=== PATIENT | female | born 1945 | race Caucasian/White ===

== ENCOUNTER 2021-02-24 23:02 | Inpatient (IN) | payer OTHER, SELFPAY ==
[~2021-02-24] VITALS: Ht 154.9 cm; Wt 51.8 kg
[2021-02-24 23:05] VITALS: BP_SYST 102
--- NOTE | 2021-02-24 23:05 | NUR ---
Placed in room 08 . Placed on groundwater monitoring technician, blood pressure machine and pulse oximeter. To gown for exam. Side rails up.
--- NOTE | 2021-02-24 23:10 | NUR ---
PATIENT AAOX1 BIB BLS FROM [facility] FOR GENERALIZED WEAKNESS AND FEELING HOT TO TOUCH. PATIENT HAS HISTORY OF DEMENTIA, PSYCHOSIS, AND AGITATION. NON AMBULATORY. VSS.
--- NOTE | 2021-02-24 23:20 | NUR ---
# 20 gauge angiocath placed to LEFT FOREARM. Use of asceptic technique. Opsite placed over site. Blood return noted. Blood for lab drawn from site. Flushed with 10 cc of normal saline. No evidence of infiltration noted. Patient tolerated well. COVID SWAB AND MRSA SWAB COLLECTED AND SENT TO LAB.
--- NOTE | 2021-02-24 23:25 | NUR ---
DR. JAUREGUI AT BEDSIDE FOR EVALUATION.
[2021-02-24] MEDS ORDERED: NACL 0.9% 2,000 ML IV ONE (23:30)
[2021-02-24] MEDS ORDERED: ACETAMINOPHEN 650 MG SUPP.RECT RC ONE (23:30)
--- NOTE | 2021-02-24 23:53 | NUR ---
PORTABLE XRAY DONE AT BEDSIDE.
[2021-02-25 00:03] LABS: BILIRUBIN,URINE NEGATIVE (NEGATIVE); BLOOD, URINE 3+ (NEGATIVE); CLARITY/URINE CLOUDY (CLEAR); COLOR,URINE YELLOW (YELLOW); GLUCOSE,URINE NEGATIVE (NEGATIVE); KETONES,URINE NEGATIVE (NEGATIVE); LEUKOCYTE ESTERASE ,URINE 2+ (NEGATIVE); NITRITE, URINE POSITIVE (NEGATIVE); PH,URINE 5.5 (5.0-8.0); PROTEIN URINE 1+ (NEGATIVE); UROBILINOGEN,URINE 0.2 (0.2-1.0)
[2021-02-25 00:04] LABS: BASOPHILS % (AUTO) 0.3 % (0.0-2.0); HEMATOCRIT 33.3 % (36-48); HEMOGLOBIN 11.3 g/dL (12.0-16.0); LYMPHOCYTES # (AUTO) 0.3 K/uL (1.0-5.5); LYMPHOCYTES % (AUTO) 3.4 % (20.5-51.5); MEAN CORPUSCULAR HEMOGLOBIN 32 pg (27-31); MEAN CORPUSCULAR HGB CONC 34 % (32-36); MEAN CORPUSCULAR VOLUME 94 fL (79.0-98.0); MONOCYTES # (AUTO) 0.7 K/uL (0.0-1.0); MONOCYTES % (AUTO) 8.4 % (1.7-9.3); NEUTROPHILS # (AUTO) 7.4 K/uL (1.8-7.7); NEUTROPHILS % (AUTO) 87.9 % (40.0-70.0); PLATELET COUNT (AUTO) 112 K/uL (130-430); RED BLOOD CELL COUNT(AUTO) 3.55 MIL/uL (4.2-6.2); RED CELL DISTRIBUTION WIDTH 12.8 % (9.0-15.0); WHITE BLOOD COUNT (AUTO) 8.5 K/uL (4.8-10.8)
[2021-02-25 00:10] LABS: ANION GAP 7 (5-15); CALCIUM 8.6 mg/dL (8.4-11.0); CHLORIDE 100 mmol/L (98-107); CREATININE 1.28 mg/dL (0.55-1.30); GLUCOSE 158 mg/dL (70-99); POTASSIUM 3.7 mmol/L (3.5-5.1); SODIUM SERUM 135 mmol/L (136-145); UREA NITROGEN, BLOOD 20 mg/dL (8-21)
[2021-02-25 00:13] LABS: INR 1.1 (0.8-1.2); PROTHROMBIN TIME 11.4 SECS (9.5-12.5)
[2021-02-25 00:14] LABS: RBC,URINE 20-50 /HPF (0-3)
[2021-02-25 00:15] LABS: BACTERIA,URINE MANY /HPF (None Seen); WBC,URINE 20-50 /HPF (0-3)
[2021-02-25] MEDS: QUEtiapine FUMARATE 25 MG TABLET PO SCH (00:15)
[2021-02-25] MEDS: MEMANTINE HCL 5 MG TABLET PO SCH (00:15)
[2021-02-25] MEDS: DONEPEZIL HCL 5 MG TABLET (ARICEPT) PO SCH (00:15)
[2021-02-25] MEDS ORDERED: PIPERACILLIN/TAZO 3.375 GM in NS 50 ML IV ONE (00:15)
[2021-02-25] MEDS: QUEtiapine FUMARATE 100 MG TABLET PO SCH (00:15)
[2021-02-25 00:16] LABS: ALANINE AMINOTRANSFERASE 17 U/L (12-78); ALBUMIN 3.4 g/dL (3.4-4.8); ASPARTATE AMINOTRANSFERASE 19 U/L (10-37); TOTAL BILIRUBIN 0.5 mg/dL (0.0-1.0)
[2021-02-25] MEDS ORDERED: PIPERACILLIN/TAZOBACTAM 3.375 GM/VIAL (ZOSYN) IV ONE ×3 (01:03→18:12)
--- NOTE | 2021-02-25 01:22 | NUR ---
MEDICATION ADMINISTERED ORDERED.
[2021-02-25] MEDS ORDERED: ACETAMINOPHEN 650 MG SUPP.RECT RC PRN (03:15)
--- NOTE | 2021-02-25 03:20 | NUR ---
Patient will be admitted to care of [facility]. Admitted to MD SURG unit. PENDING ROOM ASSIGNMENT. Belongings list completed. Complete and up to date summary report printed. SBAR report to be given at bedside with opportunity for questions.
--- NOTE | 2021-02-25 04:00 | NUR ---
Patient's code status is FULL CODE paperwork completed and placed in chart.
[2021-02-25] MEDS: LR 1,000 ML IV SCH ×2 (05:49→15:53)
[2021-02-25] MEDS ORDERED: SER100 PO (05:58)
[2021-02-25] MEDS ORDERED: ACET325T53 PO (05:58)
[2021-02-25] MEDS ORDERED: DONE10TA44 PO (05:58)
[2021-02-25] MEDS ORDERED: MEMA5TAB PO (05:58)
[2021-02-25] MEDS ORDERED: LORA-258 PO (05:58)
[2021-02-25] MEDS ORDERED: DOCU-144 PO (05:58)
[2021-02-25] MEDS ORDERED: SER25 PO (05:58)
[2021-02-25] MEDS ORDERED: QUET50TA24 PO (05:58)
--- NOTE | 2021-02-25 05:58 | NUR ---
Medication reconciliation completed with information provided by [facility]. Any prior medication reconciliation on file was reviewed and corrected.
--- NOTE | 2021-02-25 05:59 | NUR ---
BELONGINGS DONE AT BEDSIDE.
--- NOTE | 2021-02-25 07:17 | NUR ---
REPORT GIVEN TO SAURAV CANNON.
--- NOTE | 2021-02-25 07:20 | NUR ---
Assumed care of patient, report received from SAURAV Tran. Pt currently resting in bed, no acute distress noted.
--- NOTE | 2021-02-25 08:00 | NUR ---
Breakfast tray provided to pt, pt declined.
--- NOTE | 2021-02-25 09:50 | NUR ---
Pt transfered to hospital bed, complete linen/gown change and pericare performed. Pt tolerated well.
[2021-02-25] MEDS ORDERED: DOCUSATE SODIUM 100 MG CAPSULE PO PRN (11:15)
[2021-02-25] MEDS ORDERED: ACETAMINOPHEN 325 MG TABLET PO PRN (11:15)
--- NOTE | 2021-02-25 11:30 | NUR ---
Pt repositioned to right side, HOB elevated to 30 degrees, pillows placed behind back and in between legs.
[2021-02-25] MEDS: PIPERACILLIN/TAZO 3.375/DEX-IS 50 ML IV SCH ×2 (12:01→18:36)
--- NOTE | 2021-02-25 12:15 | NUR ---
Attempted to feed patient, refusing to eat. Attempting to scratch and hit staff.
--- NOTE | 2021-02-25 13:30 | NUR ---
Pt repositioned to left side, HOB elevated to 30 degrees, pillows placed behind back and in between legs.
--- NOTE | 2021-02-25 15:45 | NUR ---
Pt repositioned to right side, HOB elevated to 30 degrees, pillows placed behind back and in between legs.
--- NOTE | 2021-02-25 17:10 | NUR ---
Pt repositioned to right side, HOB elevated to 30 degrees, pillows placed behind back and in between legs.
--- NOTE | 2021-02-25 17:30 | NUR ---
Pt provided with dinner tray, ate approx 20% of tray and drank an entire vanilla glucerna. Tolerated well
--- NOTE | 2021-02-25 18:30 | NUR ---
Complete linen change performed, gown changed, pt tolerated well.
--- NOTE | 2021-02-25 19:12 | NUR ---
Care of patient endorsed to SAURAV Tran. Pt currently resting in bed, no distress noted.
--- NOTE | 2021-02-25 19:40 | NUR ---
PATIENT RESTING AT THIS TIME. VSS. NO VISIBLE SIGNS OF DISTRESS.
[2021-02-25] MEDS ORDERED: LORazepam 1 MG TABLET ONE (22:56)
[2021-02-25] MEDS: LORazepam 1 MG TABLET PO SCH (22:57)
--- NOTE | 2021-02-25 23:05 | NUR ---
ROOM ASSIGNMENT GIVEN. PATIENT TO GO TO 105B. REPORT GIVEN TO SAURAV CRAWFORD.
--- NOTE | 2021-02-25 23:15 | NUR ---
ADMISSION NOTE Received patient from ER via nemo, received report from Chelsea MG. Patient admitted with diagnosis of UTI and Dehydration. Patient oriented to hospital routine, call light, toileting and safety-patient verbalized understanding.
[2021-02-25 23:37] VITALS: BP_SYST 102
[2021-02-26 00:22] VITALS: BP_SYST 115
[2021-02-26] MEDS: PIPERACILLIN/TAZO 3.375/DEX-IS 50 ML IV SCH ×3 (00:27→12:07)
--- NOTE | 2021-02-26 03:00 | NUR ---
Note Pt resting comfortable, no distress noted at this time. No agitation or anxiety noted. no fever noted.
[2021-02-26] MEDS: LR 1,000 ML IV SCH ×3 (04:31→22:06)
--- NOTE | 2021-02-26 06:24 | NUR ---
closing note Pt resting, awake easily to voice and touch. No respiratory distress on room air. No complaint or discomfort. IV patent and intact IVF running. Pt alert x1. Provided care and linen change. Call light within reach, bed to lowest/locked/alarmed. On fall/aspiration precaution.
[2021-02-26 06:42] LABS: BASOPHILS % (AUTO) 0.4 % (0.0-2.0); HEMATOCRIT 32.7 % (36-48); LYMPHOCYTES # (AUTO) 0.7 K/uL (1.0-5.5); LYMPHOCYTES % (AUTO) 7.1 % (20.5-51.5); MEAN CORPUSCULAR HEMOGLOBIN 31 pg (27-31); MEAN CORPUSCULAR HGB CONC 34 % (32-36); MEAN CORPUSCULAR VOLUME 92 fL (79.0-98.0); MONOCYTES # (AUTO) 1.1 K/uL (0.0-1.0); MONOCYTES % (AUTO) 10.9 % (1.7-9.3); NEUTROPHILS # (AUTO) 8.3 K/uL (1.8-7.7); NEUTROPHILS % (AUTO) 81.6 % (40.0-70.0); PLATELET COUNT (AUTO) 114 K/uL (130-430); RED BLOOD CELL COUNT(AUTO) 3.55 MIL/uL (4.2-6.2); WHITE BLOOD COUNT (AUTO) 10.1 K/uL (4.8-10.8)
[2021-02-26 06:55] LABS: ALANINE AMINOTRANSFERASE 21 U/L (12-78); ALBUMIN 2.5 g/dL (3.4-4.8); ANION GAP 4 (5-15); ASPARTATE AMINOTRANSFERASE 40 U/L (10-37); CHLORIDE 105 mmol/L (98-107); CREATININE 0.92 mg/dL (0.55-1.30); GLUCOSE 93 mg/dL (70-99); POTASSIUM 3.7 mmol/L (3.5-5.1); SODIUM SERUM 138 mmol/L (136-145); TOTAL BILIRUBIN 0.4 mg/dL (0.0-1.0); UREA NITROGEN, BLOOD 13 mg/dL (8-21)
--- NOTE | 2021-02-26 08:46 | NUR ---
Nutrition Update Andreas Scale 15 noted. Pt admitted for UTI, Dehydration Diet: Mechanical soft BMI: 21.6 kg/m2 RD to follow per nutrition care standards.
--- NOTE | 2021-02-26 09:00 | NUR ---
seen by patient financial services manager today
[2021-02-26] MEDS: QUEtiapine FUMARATE 25 MG TABLET PO SCH ×2 (09:24→22:05)
[2021-02-26] MEDS: LORazepam 1 MG TABLET PO SCH ×2 (09:25→22:05)
--- NOTE | 2021-02-26 12:27 | NUR ---
DC PLANNING Received call from Jared at [facility], ph [phone], updated on pt status. States to call him for dc planning needs.
--- NOTE | 2021-02-26 13:26 | NUR ---
CONSULTATION PAGED/CALLED Reason for Consultation: GT PLACEMENT Person Who was Notified: HOLLY Consulting Physician: ANI Nursing Home Manager Specialty: Ordering Physician: SMOOTH
--- NOTE | 2021-02-26 15:36 | NUR ---
patient looks so worried and confuse.Assurance given that she safe and taking good care from falling. cooperative and calm, follows simple commands. able to take her morning meds. Had two times bowel movement today . perineal care done. kept clean and comfortable. Black color dirt stained on her bilateral foot is hard to remove. aware . Skin is intact. turned to sides done every 4 hrs. will continue to provide care.
[2021-02-26 15:38] VITALS: BP_SYST 124
[2021-02-26 16:31] VITALS: BP_SYST 111
--- NOTE | 2021-02-26 17:00 | NUR ---
follow up called Dr Cintron. will wait for call back.
--- NOTE | 2021-02-26 18:40 | NUR ---
Dr Liu called back. Patients reason for consult is aware. said he will see patient tomorrow.
[2021-02-26 20:00] VITALS: BP_SYST 123
[2021-02-26] MEDS: MEMANTINE HCL 5 MG TABLET PO SCH (22:04)
[2021-02-26] MEDS: QUEtiapine FUMARATE 100 MG TABLET PO SCH (22:04)
[2021-02-26] MEDS: DONEPEZIL HCL 5 MG TABLET (ARICEPT) PO SCH (22:05)
[2021-02-27] MEDS: PIPERACILLIN/TAZO 3.375/DEX-IS 50 ML IV SCH ×4 (00:19→18:03)
[2021-02-27 00:30] VITALS: BP_SYST 126
--- NOTE | 2021-02-27 06:57 | NUR ---
PT IS RESTING QUIETLY IN BED. IVF OF LR IS INFUSING WELL AT 80ML/HR IN LFA. PT REMAINS CONFUSED AND DISORIENTED. ALL PT'S NEEDS WERE ATTENDED TO. WILL ENDORSE TO DAY SHIFT NURSE.
[2021-02-27 08:00] VITALS: BP_SYST 127
--- NOTE | 2021-02-27 08:40 | NUR ---
seen by Dr mcdermott with order for PEG placement tomorrow. consent signed by sonja. NPO postmidnight. endorse to incoming shift.
[2021-02-27] MEDS: QUEtiapine FUMARATE 25 MG TABLET PO SCH ×3 (08:53→20:57)
[2021-02-27] MEDS: LORazepam 1 MG TABLET PO SCH ×3 (08:53→20:57)
[2021-02-27 11:25] VITALS: BP_SYST 107
[2021-02-27] MEDS: LR 1,000 ML IV SCH (12:38)
[2021-02-27 15:32] VITALS: BP_SYST 130
[2021-02-27 16:00] VITALS: BP_SYST 123
--- NOTE | 2021-02-27 17:35 | NUR ---
Spoke w/ Sadie Carroll [phone]-she will find placement for pt at [facility] or [facility]-she works with [employer]. Referral Faxed to these 2 facilities. We Have an ambulance auth with [facility] when pt transfers
--- NOTE | 2021-02-27 17:56 | NUR ---
fall precaution observed for my whole shift. vital signs stable. afebrile. kept comfortable.
--- NOTE | 2021-02-27 19:15 | NUR ---
OPENING NOTES Patient resting in bed - no s/s pain or distress noted. Respirations alla and unlabored - head of bed elevated. IV site patent - no s/s redness, infection, or infiltration. Bed locked and in lowest position. Call light within reach - bed alarm on.
[2021-02-27 20:00] VITALS: BP_SYST 138
[2021-02-27] MEDS: QUEtiapine FUMARATE 100 MG TABLET PO SCH ×2 (20:53→20:57)
[2021-02-27] MEDS: MEMANTINE HCL 5 MG TABLET PO SCH ×2 (20:53→20:57)
[2021-02-27] MEDS: DONEPEZIL HCL 5 MG TABLET (ARICEPT) PO SCH ×2 (20:54→20:57)
--- NOTE | 2021-02-27 22:00 | NUR ---
ROUNDING NOTES Patient resting in bed - no s/s pain or distress noted. Respirations alla and unlabored - head of bed elevated. IV site patent - no s/1s redness, infection, or infiltration. Bed locked and in lowest position. Call light within reach - bed alarm on.
[2021-02-28] MEDS: PIPERACILLIN/TAZO 3.375/DEX-IS 50 ML IV SCH ×5 (00:22→23:52)
[2021-02-28 02:02] VITALS: BP_SYST 134
[2021-02-28] MEDS: LR 1,000 ML IV SCH ×2 (03:32→18:16)
[2021-02-28 06:28] LABS: BASOPHILS % (AUTO) 0.6 % (0.0-2.0); EOSINOPHILS # (AUTO) 0.1 K/uL (0.0-0.4); EOSINOPHILS % (AUTO) 1.1 % (0.0-4.0); HEMATOCRIT 33.2 % (36-48); HEMOGLOBIN 11.1 g/dL (12.0-16.0); LYMPHOCYTES # (AUTO) 0.8 K/uL (1.0-5.5); LYMPHOCYTES % (AUTO) 16.1 % (20.5-51.5); MEAN CORPUSCULAR HEMOGLOBIN 31 pg (27-31); MEAN CORPUSCULAR HGB CONC 33 % (32-36); MEAN CORPUSCULAR VOLUME 92 fL (79.0-98.0); MONOCYTES # (AUTO) 0.6 K/uL (0.0-1.0); MONOCYTES % (AUTO) 12.3 % (1.7-9.3); NEUTROPHILS # (AUTO) 3.4 K/uL (1.8-7.7); NEUTROPHILS % (AUTO) 69.9 % (40.0-70.0); PLATELET COUNT (AUTO) 154 K/uL (130-430); RED BLOOD CELL COUNT(AUTO) 3.62 MIL/uL (4.2-6.2); RED CELL DISTRIBUTION WIDTH 13.1 % (9.0-15.0); WHITE BLOOD COUNT (AUTO) 4.9 K/uL (4.8-10.8)
[2021-02-28 06:36] LABS: ANION GAP 8 (5-15); CALCIUM 8.5 mg/dL (8.4-11.0); CHLORIDE 103 mmol/L (98-107); CREATININE 0.74 mg/dL (0.55-1.30); GLUCOSE 92 mg/dL (70-99); POTASSIUM 3.5 mmol/L (3.5-5.1); SODIUM SERUM 138 mmol/L (136-145); UREA NITROGEN, BLOOD 8 mg/dL (8-21)
[2021-02-28 08:00] VITALS: BP_SYST 128
--- NOTE | 2021-02-28 08:00 | NUR ---
OPENING NOTES: PATIENT RESTING IN BED. BREATHING EVEN AND NON LABORED TO RA. BED LOCKED, ALARM ON AND IN LOWEST POSITION. FALL AND SAFETY REINFORCED. CALL LIGHT WITHIN REACH.
[2021-02-28] MEDS ORDERED: SIMETHICONE 40 MG/0.6 ML ML ONE (08:11)
[2021-02-28] MEDS: LORazepam 1 MG TABLET PO SCH ×2 (09:00→22:46)
[2021-02-28] MEDS: QUEtiapine FUMARATE 25 MG TABLET PO SCH ×2 (09:00→22:47)
--- NOTE | 2021-02-28 10:20 | NUR ---
PATIENT IS GOING TO HAVE PEG PLACEMENT TODAY. PLAN: ATTEMPT TREATMENT TOMORROW.
--- NOTE | 2021-02-28 10:26 | NUR ---
PATIENT FOR PEG: PATIENT BROUGHT OUT FROM THE ROOM VIA BED FOR PEG. PATIENT IN STABLE CONDITION.
[2021-02-28] MEDS: MIDAZOLAM HCL 5 MG/5 ML VIAL ONE ×5 (10:31→10:44)
[2021-02-28] MEDS: MEPERIDINE 100 MG INJ. 100 MG/ML VIAL ONE ×2 (10:31→10:33)
--- NOTE | 2021-02-28 11:15 | NUR ---
PATIENT BACK TO ROOM (PEG): PATIENT BROUGHT BACK TO ROOM VIA GURNEY. PATIENT IN STABLE CONDITION. GT IN PLACED WITH ABDOMINAL BINDER.
--- NOTE | 2021-02-28 15:26 | NUR ---
DISCHARGE PLANNING PEG placed today, plan for dc to SNF tomorrow if ariela GTF. Spoke with Jared at [facility], ph [phone], already gave auth to [facility], use [facility] for transportation with auth#[id number]. Spoke with Clark at bedside & agreeable with [facility], states already met with someone from their. Informed plan for possibly tomorrow if stable for dc. Called & spoke with Gifty at [facility] & accepted pt to room 12B, aware plan for tomorrow. Called and put transportation on will-call with [facility]. Updated pt's nurse. [facility], room 12B, report ph [phone] ask for RN [address] [place] [id number] [facility] on will-call with ref#[id number], ph [phone] [facility]([employer])after hrs ph [phone] Addendum: 02/28/21 at 1543 by Jessica Lopez RN packet to [facility]
[2021-02-28 15:35] VITALS: BP_SYST 141
--- NOTE | 2021-02-28 18:47 | NUR ---
CLOSING NOTES: PATIENT RESTING IN BED. NOS SIGNS OF ACUTE DISTRESS NOTED. G TUBE IN PLACED AND COVERED WITH ABDOMINAL BINDER. BED LOCKED, ALARM ON AND IN LOWEST POSITION. FALL AND SAFETY MEASURES RENDERED. CALL LIGHT WITHIN REACH.
[2021-02-28 20:00] VITALS: BP_SYST 130
--- NOTE | 2021-02-28 20:00 | NUR ---
INITIAL NOTES Patient resting in bed ,no s/s pain or distress noted. Respirations even and nonlabored , vitals are stable ; IV site patent - no s/s redness, infection, or infiltration noted . Bed locked and in lowest position. Call light within reach , bed alarm is on ; will continue to monitor pt .
[2021-02-28] MEDS: MEMANTINE HCL 5 MG TABLET PO SCH (22:46)
[2021-02-28] MEDS: QUEtiapine FUMARATE 100 MG TABLET PO SCH (22:46)
[2021-02-28] MEDS: DONEPEZIL HCL 5 MG TABLET (ARICEPT) PO SCH (22:47)
--- NOTE | 2021-02-28 23:00 | NUR ---
G T FEEDING : PER MD ORDER , DUE MEDICATION GIVEN , GT FLUSHED WELL ; G T FEEDING STARTED AT THE RATE OF 40 CC/HR .WILL MONITOR PT.
[2021-03-01 01:27] VITALS: BP_SYST 121
--- NOTE | 2021-03-01 05:00 | NUR ---
RN NOTES: GT RESIDUAL IS ONLY 10 CC , GT FLUSHED WELL ; PT IS TOLERATING FEEDING WELL.
[2021-03-01] MEDS: LR 1,000 ML IV SCH (05:23)
[2021-03-01] MEDS: PIPERACILLIN/TAZO 3.375/DEX-IS 50 ML IV SCH (05:24)
--- NOTE | 2021-03-01 07:18 | NUR ---
CLOSING NOTES: REPORT GIVEN TO RN AT BEDSIDE ; GT FEEDING IS INFUSING WELL ; PT IS TOLERATING IT WELL . ALL NEEDS ATTENDED .
[2021-03-01 07:37] VITALS: BP_SYST 112
--- NOTE | 2021-03-01 07:43 | NUR ---
OPENING NOTES: PATIENT RESTING IN BED. NO SIGNS OF ACUTE DISTRESS NOTED. G TUBE IN PLACED AND INFUSING WELL. IV INFUSING WELL. FALL AND SAFETY REINFORCED. BED LOCKED, ALARM ON AND IN LOWEST POSITION. CALL LIGHT WITHIN REACH.
[2021-03-01] MEDS: QUEtiapine FUMARATE 25 MG TABLET PO SCH (08:49)
[2021-03-01] MEDS: LORazepam 1 MG TABLET PO SCH (08:50)
[2021-03-01] MEDS ORDERED: MULTIVITS,CA,MINERALS/IRON/FA 1 TABLET GT SCH (09:00)
[2021-03-01] MEDS ORDERED: FERROUS SULFATE 300 MG/5 ML UDC GT SCH (09:00)
[2021-03-01] MEDS ORDERED: MULTIVIT-MINERALS/FERROUS GLUC 15 ML UDC GT SCH (09:00)
[2021-03-01] MEDS ORDERED: CEPH250C PO (10:54)
[2021-03-01] MEDS ORDERED: CEPHALEXIN 250 MG/5 ML, 100 ML BTL GT SCH (11:15)
[2021-03-01 11:33] VITALS: BP_SYST 115
--- NOTE | 2021-03-01 13:38 | NUR ---
SPOKE TO SAURAV YING AT [facility]: REPORT GIVEN TO DEONNA OF [facility].
--- NOTE | 2021-03-01 13:39 | NUR ---
SPOKE TO JASON OF [facility]: SPOKE TO JASON OF [facility] AND PATIENT WILL BE PICKED UP AT [phone].
--- NOTE | 2021-03-01 14:30 | NUR ---
SPOKE TO AT BEDSIDE(re: DISCHARGE) SPOKE TO AT BESIDE REGARDING THE PATIENT'S DISCHARGE TO [facility]. SIGNED ACKNOWLEDGEMENT TRANSFER CONSENT.
[2021-03-01 15:32] VITALS: BP_SYST 120
[2021-03-01 16:37] VITALS: BP_SYST 115
--- NOTE | 2021-03-01 17:20 | NUR ---
D/C Patient Patient transferred to [facility] via [facility]. EMT discharge packet and D/C instructions. Exit Care provided. Patient verbalized understanding. G tube, flushed and secured. Abdominal binder in placed. MD discussed with patient the results and treatment provided. Patient in stable condition, ID band removed and changed to white band. IV catheter removed, intact and dressing applied, no active bleeding. Rx of given. All belongings sent with patient.
[2021-03-01] MEDS ORDERED: LACTOBACILLUS RHAMNOSUS GG 1 CAP CAPSULE GT SCH (21:00)
== END 2021-03-01 17:20 | DRG 689 ==
LOC: SED 23:02 → SMU 02-25 03:15
PROVIDERS: ADMIT Internal Medicine; ATTEND Internal Medicine
PROC: 0DH63UZ Insertion of Feeding Device into Stomach, Percutaneous Approach (ICD-10-PCS; principal; 2021-02-28 10:00)
DX: N30.01 Acute cystitis with hematuria (principal); E43 Unspecified severe protein-calorie malnutrition; E86.0 Dehydration; F03.90 Unspecified dementia, unspecified severity, without behavioral disturbance, psychotic disturbance, mood disturbance, and anxiety; Z20.822 Contact with and (suspected) exposure to COVID-19; D64.9 Anemia, unspecified; M79.7 Fibromyalgia; R62.7 Adult failure to thrive; Z68.21 Body mass index [BMI] 21.0-21.9, adult; Z88.6 Allergy status to analgesic agent; Z79.899 Other long term (current) drug therapy
CPT/HCPCS: 36415; 43246; 71045; 80048; 80053; 81000; 83605; 84484; 85025; 85610-TC; 85730-TC; 87040-TC; 87081; 87086; 93005; 96361; 96374; 97110-GP; 97530-GP; 99285; J2175; J2250; J2543

== ENCOUNTER 2022-04-07 12:46 | Emergency (ER) | payer OTHER ==
[~2022-04-07] VITALS: Ht 165.1 cm; Wt 63.5 kg
[~2022-04-07 12:46] MED LIST: ACET325T53 PO; CEPH250C PO; DONE10TA44 PO; MEMA5TAB PO; QUET50TA24 PO; SER100 PO
[2022-04-07 12:59] VITALS: BP_SYST 108
--- NOTE | 2022-04-07 13:00 | NUR ---
Patient to ER bed 1 to gown for evaluation. Side rails up. Report given Danielle/SAURAV MAST.
--- NOTE | 2022-04-07 13:05 | NUR ---
PT BIBA AWAKE AND ALERT, A0 XO. NO SOB OR DISTRESS. PT WAS NOT SEIZING UPON ARRIVAL. PT WAS SENT FROM [facility] FOR SEIZURE. FACILITY STATES PT HAS HX OF SEIZURE. PT IS VERBAL BUT CONFUSED.
--- NOTE | 2022-04-07 13:15 | NUR ---
MD DR COLMENARES AT BEDSIDE
--- NOTE | 2022-04-07 13:28 | NUR ---
COVID AND MRSA SWABS COLLECTED AND SENT TO LAB 13:27.
[2022-04-07 14:01] LABS: BASOPHILS % (AUTO) 0.2 % (0.0-2.0); EOSINOPHILS % (AUTO) 0.2 % (0.0-4.0); HEMOGLOBIN 12.7 g/dL (12.0-16.0); LYMPHOCYTES # (AUTO) 0.5 K/uL (1.0-5.5); LYMPHOCYTES % (AUTO) 6.4 % (20.5-51.5); MEAN CORPUSCULAR HEMOGLOBIN 31 pg (27-31); MEAN CORPUSCULAR HGB CONC 34 % (32-36); MEAN CORPUSCULAR VOLUME 91 fL (79.0-98.0); MONOCYTES # (AUTO) 0.3 K/uL (0.0-1.0); MONOCYTES % (AUTO) 4.7 % (1.7-9.3); NEUTROPHILS # (AUTO) 6.3 K/uL (1.8-7.7); NEUTROPHILS % (AUTO) 88.5 % (40.0-70.0); PLATELET COUNT (AUTO) 162 K/uL (130-430); RED BLOOD CELL COUNT(AUTO) 4.06 MIL/uL (4.2-6.2); RED CELL DISTRIBUTION WIDTH 13.3 % (9.0-15.0); WHITE BLOOD COUNT (AUTO) 7.1 K/uL (4.8-10.8)
[2022-04-07 14:17] LABS: ANION GAP 7 (5-15); CALCIUM 9.6 mg/dL (8.4-11.0); CHLORIDE 103 mmol/L (98-107); CREATININE 1.07 mg/dL (0.55-1.30); GLUCOSE 116 mg/dL (70-99); POTASSIUM 4.3 mmol/L (3.5-5.1); UREA NITROGEN, BLOOD 20 mg/dL (8-21)
[2022-04-07 14:32] LABS: ALANINE AMINOTRANSFERASE 41 U/L (12-78); ALBUMIN 3.2 g/dL (3.4-4.8); ASPARTATE AMINOTRANSFERASE 25 U/L (10-37); TOTAL BILIRUBIN 0.4 mg/dL (0.0-1.0)
[2022-04-07] MEDS ORDERED: levETIRAcetam 1,000 MG IV BAG 100 ML IV ONE (16:00)
--- NOTE | 2022-04-07 16:47 | NUR ---
PT IN BED RESTING. NO SEIZURE OBSERVED IN ER. VSS. IV KEPRA JUST ADMINISTERED.
[2022-04-07] MEDS ORDERED: MULT-1117 GT (17:16)
[2022-04-07] MEDS ORDERED: ASCO500T20 GT (17:16)
[2022-04-07] MEDS ORDERED: DONE10TA44 GT (17:16)
[2022-04-07] MEDS ORDERED: MEMA5TAB GT (17:16)
[2022-04-07] MEDS ORDERED: VITD2000 GT (17:16)
[2022-04-07] MEDS ORDERED: ACET325T GT (17:16)
[2022-04-07] MEDS ORDERED: FER300L GT (17:16)
[2022-04-07] MEDS ORDERED: SER100 GT (17:16)
[2022-04-07] MEDS ORDERED: LEVE500T9 PO (19:26)
--- NOTE | 2022-04-07 22:02 | NUR ---
Pt resting in bed, no s/s of distress, will cont to monitor
--- NOTE | 2022-04-07 22:14 | NUR ---
PT IN BED AWAKE AND ALERT. NO SIGN OD SOB, DISTRESS, OR SEIZURE. PT SEEMS COMFORTABLE PLAYING WITH HER STUFF ANIMAL.
[2022-04-07 22:56] VITALS: BP_SYST 103
--- NOTE | 2022-04-07 22:59 | NUR ---
Patient given written and verbal discharge instructions and verbalizes understanding. ER MD DR BARKER discussed with patient the results and treatment provided. Patient in stable condition. ID arm band removed. IV catheter removed intact and dressing applied, no active bleeding. Rx of KEPPRA given. Patient educated on pain management and to follow up with PMD. Pain Scale 0/10. Opportunity for questions provided and answered. Medication side effect fact sheet provided.
== END 2022-04-07 22:56 ==
LOC: SED 12:46
DX: R56.9 Unspecified convulsions (principal); Z88.5 Allergy status to narcotic agent; Z79.899 Other long term (current) drug therapy; Z20.822 Contact with and (suspected) exposure to COVID-19
CPT/HCPCS: 99284; 96365; 70450; 87426; 80053; 85025; 87081; 36415; 76376; J1953